=== PATIENT | male | born 1970 | race Caucasian/White ===

== ENCOUNTER 2018-12-20 16:53 | Emergency (ER) | payer BC ==
[2018-12-20 17:22] VITALS: BP 137/90
[2018-12-20] MEDS ORDERED: Albuterol HFA INHALER* 8 gm MDI INH ONE (18:50)
[2018-12-20] MEDS ORDERED: predniSONE TAB* 20 MG PO ONE (18:51)
--- NOTE | 2018-12-20 18:57 | UC ---
Respiratory Complaint HPI - HPI Summary HPI Summary: 48 yo male with cough (productive x 5 days) first two day fever/chills myalgias no n.v.d no cp/sob has nasal congestion His main compliant is his frontal PINEDA which only minimally responds to OTC meds - History of Current Complaint Chief Complaint: UCRespiratory Stated Complaint: COUGH, HEADACHE Time Seen by Provider: 12/20/18 18:37 Onset/Duration: Lasting Days Timing: Constant Severity Initially: Mild Severity Currently: Severe Pain Intensity: 8 Pain Scale Used: 0-10 Numeric Character: Cough: Productive Aggravating Factors: Nothing Alleviating Factors: Nothing Associated Signs And Symptoms: Positive: Nasal Congestion Related History: Similar Episode/Dx as: - bronchitis - Allergies/Home Medications Allergies/Adverse Reactions: Allergies Allergy/AdvReac Type Severity Reaction Status Date / Time No Known Allergies Allergy Verified 12/20/18 17:17 PMH/Surg Hx/FS Hx/Imm Hx Previously Healthy: Yes - Surgical History Surgical History: Yes Surgery Procedure, Year, and Place: shattered bones in right wrist. tendon tear left thumb - Family History Known Family History: Positive: Cardiac Disease, Hypertension, Diabetes - Social History Alcohol Use: Occasionally Substance Use Type: None Smoking Status (MU): Heavy Every Day Tobacco Smoker Type: Cigarettes Amount Used/How Often: 1.5 ppd Household Exposure Type: Cigarettes Cessation Counseling: Patient Advised to Stop Review of Systems All Other Systems Reviewed And Are Negative: Yes Constitutional: Positive: Fever - none x 2-3 days, Chills - none x 2-3 days, Fatigue Skin: Positive: Negative Eyes: Positive: Negative ENT: Positive: Nasal Discharge, Sinus Congestion Respiratory: Positive: Cough Cardiovascular: Positive: Negative Gastrointestinal: Positive: Negative Genitourinary: Positive: Negative Motor: Positive: Negative Neurovascular: Positive: Negative Musculoskeletal: Positive: Negative Neurological: Positive: Headache Psychological: Positive: Negative Physical Exam Triage Information Reviewed: Yes Appearance: Well-Appearing, No Pain Distress, Well-Nourished Vital Signs: Initial Vital Signs Temp 97.9 F 12/20/18 17:17 Pulse 91 12/20/18 17:17 Resp 20 12/20/18 17:17 BP 137/90 12/20/18 17:17 Pulse Ox 99 12/20/18 17:17 Vital Signs Reviewed: Yes Eyes: Positive: Conjunctiva Clear ENT: Positive: Hearing grossly normal, Nasal congestion. Negative: Pharynx normal, Nasal drainage, Tonsillar swelling, Tonsillar exudate, Trismus, Muffled voice, Hoarse voice, Sinus tenderness Neck: Positive: Supple, Nontender, No Lymphadenopathy Respiratory: Positive: No respiratory distress, No accessory muscle use, Wheezing - with forced expiration Cardiovascular: Positive: RRR, No Murmur. Negative: Tachycardia, Bradycardia Bowel Sounds: Positive: Present Musculoskeletal Exam: Normal Neurological Exam: Other - non focal neurologic exam, GCS 15/15 Psychological Exam: Normal Skin Exam: Normal Respiratory Course/Dx - Course Course Of Treatment: pulse ox 99% on RA comment: normal , not hypoxic - Differential Dx/Diagnosis Provider Diagnosis: Bronchitis with bronchospasm, Smoker, Elevated BP without diagnosis of hypertension Discharge - Sign-Out/Discharge Documenting (check all that apply): Patient Departure All imaging exams completed and their final reports reviewed: No Studies - Discharge Plan Condition: Stable Disposition: HOME Prescriptions: Amoxicillin PO (*) [Amoxicillin 875 MG (*)] 875 mg PO BID #14 tab Benzonatate CAP* [Tessalon CAP*] 100 - 200 mg PO TID PRN #28 cap PRN Reason: Cough oxyCODONE/Acetamin 5/325 MG* [Percocet 5/325 TAB*] 1 tab PO Q4H PRN #8 tab MDD 4 PRN Reason: Pain - Severe predniSONE [Deltasone 20 MG TAB] 40 mg PO DAILY #8 tab Patient Education Materials: Acute Bronchitis (ED), How to Use a Metered-Dose Inhaler and a Spacer (ED) Forms: *Work Release Referrals: No Primary Care Phys,NOPCP [Primary Care Provider] - [facility] [place] [facility] [Outside] - 2 Weeks (you need to find a primary to follow your BP and for routine health maintance recheck in 2-12 weeks) Additional Instructions: decrease or stop smoking recheck for new or worsening symptoms or if not better in 4 days Opioid-containing medications can cause drowsiness and sedation. You t should not drive or operate machinery or similar activities while taking this medication. Opioids can also cause a positive drug screen, and can be habit- forming. You should follow the instructions exactly and not take any extra medication. Opioid medications should be stored in a secure manner to avoid diversion or theft. You should not drink alcohol while taking these medications - Billing Disposition and Condition Condition: STABLE Disposition: Home
== END 2018-12-20 19:10 | disposition home or self-care (01) ==
LOC: UCCORT 16:53
DX: J40 Bronchitis, not specified as acute or chronic (principal); J98.01 Acute bronchospasm; R51 Headache; R03.0 Elevated blood-pressure reading, without diagnosis of hypertension; F17.210 Nicotine dependence, cigarettes, uncomplicated
CPT/HCPCS: 99213; A9270-GY; G0463; J7512

== ENCOUNTER 2019-02-08 17:16 | Emergency (ER) | payer BC ==
[2019-02-08 18:02] VITALS: BP 108/67
[2019-02-08 18:53] LABS: Influenza A Molecular NEGATIVE (Negative); Influenza B Molecular NEGATIVE (Negative)
--- NOTE | 2019-02-08 18:57 | UC ---
Respiratory Complaint HPI - HPI Summary HPI Summary: 48 yo male with 2 day history of fever/chills/cough and nasal congestion severe myalgias no n/v/d no CP or sob no UTI symptoms - History of Current Complaint Chief Complaint: UCGeneralIllness Stated Complaint: CONGESTION/BACK PAIN Time Seen by Provider: 02/08/19 18:25 Hx Obtained From: Patient Onset/Duration: Sudden Onset, Gradual Onset, Lasting Minutes Severity Initially: Mild Severity Currently: Severe Pain Intensity: 8 Pain Scale Used: 0-10 Numeric Character: Cough: Nonproductive Aggravating Factors: Nothing Associated Signs And Symptoms: Positive: Fever, Chills, Nasal Congestion Related History: Similar Episode/Dx as: - bronchitis - Allergies/Home Medications Allergies/Adverse Reactions: Allergies Allergy/AdvReac Type Severity Reaction Status Date / Time No Known Allergies Allergy Verified 02/08/19 18:02 PMH/Surg Hx/FS Hx/Imm Hx Previously Healthy: Yes Respiratory History: Bronchitis - Surgical History Surgical History: Yes Surgery Procedure, Year, and Place: shattered bones in right wrist. tendon tear left thumb - Family History Known Family History: Positive: Cardiac Disease, Hypertension, Diabetes - Social History Alcohol Use: Occasionally Substance Use Type: None Smoking Status (MU): Former Smoker Type: Cigarettes Amount Used/How Often: 1.5 ppd When Did the Patient Quit Smoking/Using Tobacco: 11/2018 Household Exposure Type: Cigarettes Review of Systems All Other Systems Reviewed And Are Negative: Yes Constitutional: Positive: Fever, Chills Skin: Positive: Negative Eyes: Positive: Negative ENT: Positive: Nasal Discharge Respiratory: Positive: Cough Cardiovascular: Positive: Negative Gastrointestinal: Positive: Negative Genitourinary: Positive: Negative Motor: Positive: Negative Neurovascular: Positive: Negative Musculoskeletal: Positive: Myalgia Neurological: Positive: Negative Psychological: Positive: Negative Physical Exam Triage Information Reviewed: Yes Appearance: Well-Appearing, No Pain Distress, Well-Nourished Vital Signs: Initial Vital Signs Temp 98.7 F 02/08/19 17:57 Pulse 125 02/08/19 17:57 Resp 16 02/08/19 17:57 BP 108/67 02/08/19 17:57 Pulse Ox 98 02/08/19 17:57 Vital Signs Reviewed: Yes Eyes: Positive: Conjunctiva Clear ENT: Positive: Hearing grossly normal, Pharynx normal, Nasal congestion, Nasal drainage, Sinus tenderness, Uvula midline. Negative: Tonsillar swelling, Tonsillar exudate, Trismus, Muffled voice, Hoarse voice Dental: Positive: Other: - upper dentures Neck: Positive: Supple, Nontender, No Lymphadenopathy Respiratory: Positive: Lungs clear, Normal breath sounds, No respiratory distress, No accessory muscle use, Other: - bronchospastic cough Cardiovascular: Positive: RRR, No Murmur Musculoskeletal: Positive: ROM Intact, No Edema Neurological: Positive: Alert Psychological Exam: Normal Skin Exam: Normal Diagnostics - Laboratory Lab Results: influenza (-) Respiratory Course/Dx - Differential Dx/Diagnosis Provider Diagnosis: Bronchitis Discharge - Sign-Out/Discharge Documenting (check all that apply): Patient Departure All imaging exams completed and their final reports reviewed: No Studies - Discharge Plan Condition: Stable Disposition: HOME Prescriptions: Amoxicillin PO (*) [Amoxicillin 875 MG (*)] 875 mg PO BID #14 tab Benzonatate CAP* [Tessalon CAP*] 100 - 200 mg PO TID PRN #28 cap PRN Reason: Cough Patient Education Materials: Acute Bronchitis (ED) Forms: *Work Release Referrals: No Primary Care Phys,NOPCP [Primary Care Provider] - Additional Instructions: recheck in 3-4 days if not completely better - Billing Disposition and Condition Condition: STABLE Disposition: Home
== END 2019-02-08 19:09 | disposition home or self-care (01) ==
LOC: UCCORT 17:16
DX: J40 Bronchitis, not specified as acute or chronic (principal); Z87.891 Personal history of nicotine dependence
CPT/HCPCS: 99212; G0463